=== PATIENT | male | born 1980 | race Caucasian/White ===

== ENCOUNTER 2018-01-17 19:31 | Emergency (ER) | payer MEDICARE ==
[~2018-01-17] VITALS: Ht 175.3 cm; Wt 79.2 kg
[2018-01-17] MEDS ORDERED: MOTRIN800 MG PO (21:03)
[2018-01-17] MEDS ORDERED: ZITHROMAX500 MG PO (21:03)
[2018-01-17] MEDS ORDERED: PREDNISONE20 MG PO (21:03)
[2018-01-17 21:31] VITALS: BP 145/91
== END 2018-01-17 21:32 | disposition home or self-care (01) ==
LOC: EME 19:31
DX: J10.1 Influenza due to other identified influenza virus with other respiratory manifestations (principal); J02.0 Streptococcal pharyngitis; F17.200 Nicotine dependence, unspecified, uncomplicated
CPT/HCPCS: 87502; 87651 90; 99281; 99283; J7512